=== PATIENT | female | born 1955 | race Caucasian/White ===

== ENCOUNTER 2025-02-28 17:13 | Emergency (ER) | payer MEDICARE, SELFPAY ==
[2025-02-28 17:14] VITALS: PULSE 70; RESP 25; O2SAT 97
[2025-02-28 17:16] VITALS: BMI 17.2
[2025-02-28 17:21] VITALS: BP 153/78; PULSE 64; RESP 18; TEMP 36.6; O2SAT 100
--- NOTE | 2025-02-28 17:22 | EKG_ITS ---
[facility] Test Date: 2025-02-28 Pat Name: SHERRY SOMMER Department: Room: - Gender: Female Iv Rn: : 1955 Requested By: ED Temporary Provider Order Number: [id number] Reading MD: ED Temporary Provider Measurements Intervals Left Hand Rate: 72 P: 91 LA: 206 QRS: 79 QRSD: 101 T: 88 QT: 345 QTc: 378 Interpretive Statements SINUS RHYTHM WITH SINUS ARRHYTHMIA NONSPECIFIC T-WAVE ABNORMALITY Compared to ECG 05/07/2024 19:06:13 No significant changes /store/S0/[id number].pdf
--- NOTE | 2025-02-28 17:29 | XR_ITS ---
Examination: AP chest single view TECHNIQUE: Portable AP sitting chest single view Exam date and time: February 28, 2025 1941 hours Comparison March 17, 2023 INDICATIONS: Shortness of breath today. FINDINGS: Mild prominence left ventricle. Mild vascular congestion. No lobar pneumonia or pulmonary edema. Significant osteopenia IMPRESSION: Mild prominence left ventricle. Mild vascular congestion
--- NOTE | 2025-02-28 17:30 | EDNOTE_ITS ---
ED General RME/HPI General Chief complaint: Shortness of Breath/Dyspnea Stated complaint: SOB Time Seen by Provider: 02/28/25 17:35 Arrival date/time: 02/28/25 17:13 CC: Shortness of breath HPI ongoing for the past 2 years . The patient has a history of dementia EMS report oxygen saturation of 97% was given an SVN treatment and now arrives in the bedside the patient is speaking in full sentences with an oxygen saturation of 1 9% on room air. Related Data Home Medications ?Medication ?Instructions ?Recorded ?Confirmed albuterol sulfate 90 mcg/actuation 1 inh inhalation Q4 H PRN Dyspnea 01/25/22 01/25/22 breath activated powder inhaler,sensor Previous Rx's ?Medication ?Instructions ?Recorded albuterol sulfate 90 mcg/actuation 2 puff inhalation Q ID PRN 03/17/23 aerosol inhaler (Ventolin HFA) shortness of breath or wheezing #8.5 grams budesonide 180 mcg/actuation 2 inh inhalation BID #1 e a 03/17/23 breath activated powder inhaler montelukast 10 mg tablet 10 mg PO QPM #30 tabs cephalexin 500 mg capsule 500 mg PO BID #6 caps Allergies Allergy/AdvReac Type Severity Reaction Status Date / Time acetaminophen Allergy Severe DIFF Verified 05/07/24 18:41 BREATHING AND RASH Sulfa (Sulfonamide Allergy Severe HEADACHE Verified 05/07/24 18:41 Antibiotics) Review of Systems Review of Systems Narrative Review of Systems: GEN: No fever, no chills, no weight loss EYES: No discharge, no visual changes, no pain HEENT: No ear pain, no congestion, no sore throat PULM: No shortness of breath, no cough, no congestion CV: No chest pain, no dyspnea on exertion, no palpitations GI: No nausea, no vomiting, no diarrhea, no pain, no constipation : No frequency, no urgency, no dysuria MUSC/SKEL: No joint pain, no back pain SKIN: No rash PSYCH: No hallucinations, no depression HEME/LYMPH: No easy bleeding or bruising tendencies NEURO: No weakness, no headache ED Exam Narrative Physical exam: [General: Not in any acute distress Head normocephalic HEENT: Within acceptable limits Neck is supple nontender Chest equal chest rise nontender to palpation Respiratory: Clear to auscultation no wheezes crackles or rubs CV: Rate rhythm is regular no murmurs rubs or clicks Abdomen is soft nontender no masses positive bowel sounds all 4 quadrants Back: No CVA tenderness no spinous process tenderness from cervical spine thoracic and lumbar spine Skin: Intact no petechiae rash induration ulceration or crepitus Extremities: Moving all extremity against resistance cap refill less than 2 seconds neurosensory intact Neuro: Awake alert oriented x2, person and place, Glascow coma 15 no focal deficits] Course Quality Measures none Orders Category Date Time Status EKG (ED ONLY) *Do not use* NOW Care 02/28/25 17:22 Completed EKG (ED Only) Stat Exams 02/28/25 17:22 Draft XR chest 1V Stat Exams 02/28/25 17:29 Completed CBC Stat Lab 02/28/25 17:38 Completed CMP [Comprehensive Metabolic Panel] Stat Lab 02/28/25 17:38 Completed Troponin I Stat Lab 02/28/25 17:38 Completed KCL 10% Liq UDC 15 ML Med 02/28/25 20:07 Once 40 meq GT X1 ONE Vital Signs Vital signs: Vital Signs Temperature 97.9 F 02/28/25 17:21 Pulse Rate 64 02/28/25 17:21 Respiratory Rate 18 02/28/25 17:21 Blood Pressure 153/78 H 02/28/25 17:21 Pulse Oximetry (%) 100 02/28/25 17:21 Oxygen Delivery Method Room Air 02/28/25 17:21 [facility] Patient data External records reviewed:: [facility] previous records and EMS form Clinical information provided by:: patient and EMS Social determinants that could affect healthcare access:: none Patient has the following chronic illnesses:: COPD, dementia ( per report from EMS) How is presenting disease/condition affected by chronic disease/condition?: u neffected by Evaluation data The following diagnostics were reviewed and interpreted by me:: lab results, radiology exam(s) and EKG tracing(s) Lab and/or radiology exams considered but not ordered:: EKG performed at 1724 shows ventricular rate of 72 DE interval 206 QRS of 101 QTc of 368 this is sinus rhythm nonspecific ST segment changes. CBC shows mild anemia at 11 and 32, no leukocytosis no thrombocytopenia CMP shows sodium 146 potassium of 4.1 chloride of 102 no gap no electrolyte imbalances renal impairment transaminitis or T. bili elevation. Chest x-ray shows some mild vascular congestion but no other acute finding as interpreted by me read by radiology Interpretation Summary: Patient is oxygen saturations of remained greater than 95% throughout her stay on room air, at this time comfortable discharging the patient home Medications Medications considered but not ordered:: None Medication administrations:: None Consultations Consultation(s) initiated? (list below): No Diagnosis Differential Diagnosis ED Complaint MDM: COPD exacerbation pneumonia CHF Most likely diagnosis given after review of the tests above:: Hypokalemia Admission Indicated Admission indicated?: not indicated Explain why admission is indicated or not indicated:: Stable for outpatient follow-up Admission Request Was there a request for admission?: No Disposition Plan Disposition Plan: Discharge Discharge Attestation Discharge Attestation: The patient and all family members were given an opportunity to ask questions and understood the discharge instructions. Discharge instructions specifically effects, indications for sooner follow up or return to the emergency department, and the expected course of current diagnosis. Patient condition: Stable Medical Decision Making Differential Diagnosis Differential Diagnosis: COPD exacerbation pneumonia CHF Lab Data 02/28/25 17:38 02/28/25 17:38 Labs: Lab Results 02/28/25 Range/Units 17:38 WBC 5.2 (3.6-11.0) Thou/mm3 RBC 3.49 L (4.00-5.20) Miln/mm3 Hgb 11.4 L (12.0-16.0) g/dL Hct 33.2 L (36.0-46.0) % MCV 95 (80-100) fL MCH 32.7 (25.0-35.0) pg MCHC 34.3 (31.0-37.0) g/dl RDW Std Deviation 42.9 (36.4-46.3) fL Plt Count 150 (140-440) Thou/mm3 Neut % (Auto) 64 (37-80) % Lymph % (Auto) 27 (10-50) % [place] % (Auto) 7 (0-12) % Eos % (Auto) 1 (0-10) % Baso % (Auto) 1 (0-2.5) % Neut # (Auto) 3.4 (1.8-7.7) Thou/mm3 Lymph # (Auto) 1.4 (1.0-4.8) Thou/mm3 [place] # (Auto) 0.4 (0.0-0.8) Thou/mm3 Eos # (Auto) 0.1 (0.0-0.5) Thou/mm3 Baso # (Auto) 0.0 (0.0-0.2) Thou/mm3 Immature Gran # (Auto) 0.01 H (0.00-0.00) Thou/mm3 Absolute Nucleated RBC 0.00 (0.00-0.00) Thou/mm3 Immature Gran % 0 (0-0) % Nucleated RBC % 0 (0) /100 WBC Sodium 146 H (136-145) mMol/L Potassium 3.1 L (3.4-5.1) mMol/L Chloride 108 H (98-107) mMol/L Carbon Dioxide 29.1 (20.0-31.0) mMol/L Anion Gap 9 (7-16) BUN 16 (9-23) mg/dL Creatinine 0.8 (0.6-1.3) mg/dL Estim Creat Clear Calc 50.8 L (>60) mL/min eGFR > 60 (60 - ) See Note BUN/Creatinine Ratio 20 (12-20) Ratio Glucose 100 (74-106) mg/dL Calculated Osmolality 291 (275-295) Calcium 8.9 (8.3-10.6) mg/dL Corrected Calcium 8.9 (8.5-10.1) mg/dL Total Bilirubin 0.4 (0.3-1.2) mg/dL AST 14 (0-34) U/L ALT 7 L (10-49) U/L Alkaline Phosphatase 86 (46-116) U/L Troponin I < 0.020 (0.0-0.045) ng/mL Total Protein 5.9 (5.7-8.2) gm/dL Albumin 4.2 (3.4-4.8) gm/dL Globulin 1.7 L (2.3-3.5) gm/dL Albumin/Globulin Ratio 2.5 H (1.2-2.2) Discharge Plan Plan Patient Disposition: HOME (Self Care) Patient condition on transfer: Stable Prescriptions/Referrals Prescriptions/Med Rec: No Action albuterol sulfate 90 mcg/actuation Aero Powdr Breath Act W/Sensor 1 inh INHALATION Q4H PRN (Reason: Dyspnea) montelukast 10 mg tablet 10 mg PO QPM Qty: 30 0RF budesonide 180 mcg/actuation aerosol powdr breath activated 2 inh inhalation BID Qty: 1 0RF albuterol sulfate [Ventolin HFA] 90 mcg/actuation HFA aerosol inhaler 2 puff inhalation QID PRN (Reason: shortness of breath or wheezing) Qty: 8.5 0RF cephalexin 500 mg capsule 500 mg PO BID Qty: 6 0RF Referrals: Oleg Amezquita [Primary Care Provider] - In 1 week Problem List Clinical Impression: Hypokalemia Patient/Caregiver Discharge Instructions Education Materials: ED Hypokalemia Additional Instructions: We have no indications that you have any acute congestive heart failure or breathing process that is causing you to be acutely short of breath comfortable discharging you home at this time however your potassium is noted to be slightly low please increase your intake of foods that are high in potassium levels. Print Language: Telugu Stand Alone Forms: Pinky Award Info., Patient Portal Info Letter PA/ZIGGY Supervising Physician PA/ASSEMBLY OPERATOR Supervising Physician: Kevin Quiroga ENP
[2025-02-28 18:05] LABS: Basophils % (Auto) 1 % (0-2.5); Eosinophils # (Auto) 0.1 Thou/mm3 (0.0-0.5); Eosinophils % (Auto) 1 % (0-10); Hematocrit 33.2 % (36.0-46.0); Hemoglobin 11.4 g/dL (12.0-16.0); Immature Granulocytes % (Auto) 0 % (0-0); Immature Granulocytes Auto 0.01 Thou/mm3 (0.00-0.00); Lymphocytes # (Auto) 1.4 Thou/mm3 (1.0-4.8); Lymphocytes % (Auto) 27 % (10-50); Mean Corpuscular HGB Conc 34.3 g/dl (31.0-37.0); Mean Corpuscular Hemoglobin 32.7 pg (25.0-35.0); Mean Corpuscular Volume 95 fL (80-100); Monocytes # (Auto) 0.4 Thou/mm3 (0.0-0.8); Monocytes % (Auto) 7 % (0-12); Neutrophils # (Auto) 3.4 Thou/mm3 (1.8-7.7); Neutrophils % (Auto) 64 % (37-80); Nucleated Red Blood Cell % 0 /100 WBC (0); Platelet Count 150 Thou/mm3 (140-440); RDW Standard Deviation 42.9 fL (36.4-46.3); Red Blood Count 3.49 Miln/mm3 (4.00-5.20); White Blood Count 5.2 Thou/mm3 (3.6-11.0)
[2025-02-28 18:36] LABS: Alanine Aminotransferase 7 U/L (10-49); Albumin, Serum 4.2 gm/dL (3.4-4.8); Albumin/Globulin Ratio 2.5 (1.2-2.2); Alkaline Phosphatase 86 U/L (46-116); Anion Gap 9 (7-16); Aspartate Amino Transferase 14 U/L (0-34); BUN/Creatinine Ratio 20 Ratio (12-20); Bilirubin,Total 0.4 mg/dL (0.3-1.2); Blood Urea Nitrogen 16 mg/dL (9-23); Calcium 8.9 mg/dL (8.3-10.6); Calcium (Corrected) 8.9 mg/dL (8.5-10.1); Carbon Dioxide 29.1 mMol/L (20.0-31.0); Chloride 108 mMol/L (98-107); Creatinine (Component) 0.8 mg/dL (0.6-1.3); Estimated Creatinine Clearance 50.8 mL/min (>60); Globulin 1.7 gm/dL (2.3-3.5); Glucose 100 mg/dL (74-106); Osmolality,Calculated 291 (275-295); Potassium 3.1 mMol/L (3.4-5.1); Sodium 146 mMol/L (136-145); Total Protein 5.9 gm/dL (5.7-8.2); Troponin I < 0.020 ng/mL (0.0-0.045); eGFR > 60 See Note
[2025-02-28 19:12] VITALS: BP 133/54; PULSE 85; RESP 18; TEMP 36.7; O2SAT 100
[2025-02-28 19:13] VITALS: BP 133/54; PULSE 85; RESP 18; TEMP 36.7; O2SAT 98
[2025-02-28] MEDS: POTASSIUM CHLORIDE 10% 20 MEQ/15 ML UDC 40 MEQ GT (20:16)
== END 2025-02-28 20:26 | disposition home or self-care (01) ==
PROVIDERS: Registered Nurse General Practice; Emergency Provider Emergency Medicine; PCP Internal Medicine
DX: E87.6 Hypokalemia (principal); R09.89 Other specified symptoms and signs involving the circulatory and respiratory systems; I49.8 Other specified cardiac arrhythmias
CPT/HCPCS: 36415; 71045; 80053; 84484; 85025; 93005; 99283; A9270

== ENCOUNTER → 2025-10-01 | Outpatient (CLI) | payer MEDICARE, SELFPAY ==
--- NOTE | 2025-10-01 11:00 | XR_ITS ---
Examination: CT lung low dose screening, without contrast. 2-D sagittal reconstructions. 2-D coronal reconstructions. 3-D reconstructions. Date and time of exam: October 01, 2025, 1128 hours INDICATIONS: 76-year-old, encounter for screening lung cancer, smoking history CTDI: vol (mGy): 8.26 DLP: (mGycm): 291 Technique: Multiple 1.25 mm axial sections of the lung without intravenous contrast have been obtained. 2-D sagittal and coronal reconstructions have been obtained. 3-D reconstructions have been obtained. Low dose protocols were performed. One or more of the following dose reduction techniques were used; automated exposure control, adjustment of the mA and/or KV according to patient size, use of iterative reconstruction technique. Findings: No thoracic aortic aneurysm dilatation Pulmonary artery segments are not enlarged. Minimal pericardial effusion. 3 mm pulmonary nodule left upper lobe image 73 4 mm pulmonary nodule right upper lobe image 169 No lobar pneumonia or pulmonary edema No pleural disease No focal liver or splenic lesions No pancreatic mass Kidneys partially visualized no hydronephrosis Significant osteopenia IMPRESSION: Noncalcified pulmonary nodules as above, with the study as baseline recommend 6-month follow-up CT chest without contrast
== END | disposition home or self-care (01) ==
PROVIDERS: Referring Provider Internal Medicine; Visit Provider Internal Medicine
DX: Z12.2 Encounter for screening for malignant neoplasm of respiratory organs (principal); R91.8 Other nonspecific abnormal finding of lung field
CPT/HCPCS: 71271